=== PATIENT | male | born 1970 | race African-American/Black ===

== ENCOUNTER 2018-03-13 19:53 | Emergency (ER) | payer MEDICAID ==
[~2018-03-13] VITALS: Ht 182.9 cm; Wt 77.1 kg
--- NOTE | 2018-03-13 20:25 | Emergency Room Report ---
History of Present Illness General Chief Complaint: Behavioral Complaint Source: Patient, EMS (Eddie Ceballos) Present Illness HPI 47-year-old male patient presents to ER brought in by ambulance complaining of bilateral foot pain. Ambulance reports he "flagged" them down on the street while they were driving by. Reports history of schizophrenia. Reports does not take medication, doesn't want to be "effected" by meds. Denies suicidal or homicidal ideation. 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 Does not know reason for amputation, does not have surgical or location surgery. Complaining of foot pain. Patient is a poor historian. Denies fever, shortness of breath, abdominal pain Patient denies difficulty with walking. Denies cardiovascular past medical history, denies history of [place]. (Eddie Ceballos) Allergies: Coded Allergies: No Known Allergies (Unverified , 03/13/18) Patient History Past Medical History: see triage record Reviewed Nursing Documentation: PMH: Agreed; PSxH: Agreed (Eddie Ceballos) Nursing Documentation-PMH Past Medical History: No History, Except For History Of Psychiatric Problem: Yes (Eddie Ceballos) Review of Systems All Other Systems: negative except mentioned in HPI (Eddie Ceballos) Physical Exam Vital Signs Date Time Temp Pulse Resp B/P (MAP) Pulse Ox O2 Delivery O2 Flow Rate FiO2 03/13/18 19:57 97.6 88 18 124/81 97 Room Air 97.5 Sp02 EP Interpretation: reviewed, normal General Appearance: well appearing, no apparent distress, alert, GCS 15, non- toxic Head: normocephalic, atraumatic Neck: full range of motion Respiratory: lungs clear, normal breath sounds, no rhonchi, no respiratory distress, no accessory muscle use, no wheezing, speaking full sentences Cardiovascular #1: regular rate, rhythm, no edema Musculoskeletal: digits/nails normal, gait/station normal, normal range of motion, non-tender, other - no toes on right foot; 4 toes on left foot, missing big toe Neurologic: alert, oriented x3, responsive, motor strength/tone normal, sensory intact Psychiatric: no suicidal/homicidal ideation Skin: no rash, other - feet: no erythema, no edema, no signs of infection, no open wounds, no ulcer (Eddie Ceballos) Medical Decision Making PA Attestation Dr. Chery is my supervising Physician whom patient management has been discussed with. (Eddie Ceballos) Diagnostic Impression: Primary Impression: Behavioral disorder Additional Impressions: Chronic pain Qualified Codes: G89.29 - Other chronic pain s/p amputations ER Course Pt. presents to the ED c/o bilateral foot pain, hx of amputation. Multiple differentials considered. Vital signs: are WNL, pt. is afebrile Ordered labs, urine drug screen. ER COURSE: PE benign, patient feet no erythema, edema, signs of infection. Patient able to ambulate independently. Denies suicidal or homicidal ideation. Patient care transferred to Dr. Dotson. (Eddie Ceabllos) ER Course Please see above note. I fully evaluated and examined this patient. (There are only 3 toes on L foot,) Patient rested and eaten. He is conversant this morning. He states that the main thing he wants is a wheelchair because he has pain with ambulation. He states that a walker doesn't help him. He claims that he last saw his wheelchair before paramedics brought him here. Labs are unremarkable. The patient denies suicidal or homicidal ideation at this time. The patient states that the amputations were done at [facility] and that the last hospitalization 2 weeks ago was at [facility]. He states he has chronic pain in his feet. I told the patient that we are unable to obtain a wheelchair for him the best that I can do his crutches. He understood this. He was ambulating without difficulty without use of the crutches. The patient is stable for outpatient observation and treatment. I suggested he follow-up with his social insurance specialist. (Qasim Dotson M.D.) Last Vital Signs Date Time Temp Pulse Resp B/P (MAP) Pulse Ox O2 Delivery O2 Flow Rate FiO2 03/13/18 19:57 97.6 88 18 124/81 97 Room Air 97.5 (Eddie Ceballos) Last Vital Signs Date Time Temp Pulse Resp B/P (MAP) Pulse Ox O2 Delivery O2 Flow Rate FiO2 03/14/18 08:00 97.5 84 16 110/69 96 Room Air 97.5 Status: improved (Qasim Dotson M.D.) Disposition: HOME, SELF-CARE Condition: Improved Scripts Acetaminophen (Tylenol) 325 Mg Tablet 650 MG ORAL Q6H PRN for Prn Pain/Headache/Temp > 101, #20 TAB 0 Refills Prov: Qasim Dotson M.D. 03/14/18 Gabapentin* (GABAPENTIN*) 100 Mg Capsule 100 MG ORAL THREE TIMES A DAY, #60 CAP Prov: Qasim Dotson M.D. 03/14/18 Eddie Ceballos Mar 13, 2018 20:25 Qasim Dotson M.D. Mar 14, 2018 07:22
[2018-03-13 21:07] LABS: BASOPHILS % (AUTO) 1.8 % (0.0-2.0); EOSINOPHILS % (AUTO) 3.1 % (0.0-3.0); HEMATOCRIT 40.4 % (42.0-52.0); HEMOGLOBIN 12.7 G/DL (14.2-18.0); MEAN CORPUSCULAR VOLUME 80 FL (80-99); MONOCYTES % (AUTO) 12.5 % (1.0-10.0); NEUTROPHILS % (AUTO) 41.7 % (45.0-75.0); PLATELET COUNT 180 K/UL (150-450); RED BLOOD COUNT 5.08 M/UL (4.70-6.10); RED CELL DISTRIBUTION WIDTH 13.9 % (11.6-14.8); WHITE BLOOD COUNT 6.9 K/UL (4.8-10.8)
[2018-03-13 21:21] LABS: ALANINE AMINOTRANSFERASE 22 U/L (12-78); ALBUMIN 3.6 G/DL (3.4-5.0); ALBUMIN/GLOBULIN RATIO 0.8 (1.0-2.7); ALKALINE PHOSPHATASE 59 U/L (46-116); ANION GAP 9 mmol/L (5-15); ASPARTATE AMINO TRANSFERASE 16 U/L (15-37); BILIRUBIN,TOTAL 0.2 MG/DL (0.2-1.0); BLOOD UREA NITROGEN 10 mg/dL (7-18); CALCIUM 9.3 MG/DL (8.5-10.1); CARBON DIOXIDE 27 MMOL/L (21-32); CHLORIDE 107 MMOL/L (98-107); CREATININE 0.8 MG/DL (0.55-1.30); POTASSIUM 3.7 MMOL/L (3.5-5.1); SODIUM 143 MMOL/L (136-145)
[2018-03-14 00:19] VITALS: BP 91/46
[2018-03-14 05:14] VITALS: BP 106/66
[2018-03-14] MEDS ORDERED: TYLENOL325 MG ORAL (07:25)
[2018-03-14] MEDS ORDERED: GABAPENTIN100 MG ORAL (07:25)
[2018-03-14 08:00] VITALS: BP 110/69
[2018-03-14] MEDS ORDERED: PERMETHRIN60 GM TOPIC (23:08)
== END 2018-03-14 08:02 | disposition home or self-care (01) ==
LOC: EDBD 19:53 → EMR 20:30
DX: F91.9 Conduct disorder, unspecified (principal); G89.29 Other chronic pain; M79.672 Pain in left foot; M79.671 Pain in right foot; Z89.421 Acquired absence of other right toe(s); Z89.412 Acquired absence of left great toe
CPT/HCPCS: 36415; 80053; 80307; 85025; 99283

== ENCOUNTER 2018-03-14 22:19 | Emergency (ER) | payer MEDICAID ==
[~2018-03-14] VITALS: Ht 182.9 cm; Wt 81.6 kg
[~2018-03-14 22:19] MED LIST: GABAPENTIN100 MG ORAL; TYLENOL325 MG ORAL
[2018-03-14] MEDS ORDERED: PERMETHRIN60 GM TOPIC (23:08)
[2018-03-14 23:11] VITALS: BP 108/71
[2018-03-14 23:25] VITALS: BP 108/71
--- NOTE | 2018-03-15 00:04 | Emergency Room Report ---
History of Present Illness General Chief Complaint: General Complaint Source: Patient Present Illness HPI 47-year-old male presents ED for evaluation. Patient states he has scabies. Patient is a poor historian will not provide any additional history. States he is very itchy. Patient is homeless. Denies any pain. Denies any fevers or chills. No other aggravating relieving factors. No other associated symptoms Allergies: Coded Allergies: No Known Allergies (Unverified , 03/13/18) Patient History Past Medical History: none Past Surgical History: none Pertinent Family History: none Social History: Denies: smoking, alcohol use, drug use Immunizations: UTD Reviewed Nursing Documentation: PMH: Agreed; PSxH: Agreed Nursing Documentation-PMH Past Medical History: No Stated History Review of Systems All Other Systems: negative except mentioned in HPI Physical Exam Vital Signs Date Time Temp Pulse Resp B/P (MAP) Pulse Ox O2 Delivery O2 Flow Rate FiO2 03/14/18 22:45 97.5 83 16 108/71 100 Room Air 97.5 Sp02 EP Interpretation: reviewed, normal General Appearance: no apparent distress, alert, GCS 15, non-toxic Head: normocephalic, atraumatic Eyes: bilateral eye normal inspection, bilateral eye PERRL ENT: hearing grossly normal, normal pharynx, no angioedema, normal voice Neck: full range of motion, supple/symm/no masses Respiratory: chest non-tender, lungs clear, normal breath sounds, speaking full sentences Cardiovascular #1: regular rate, rhythm, no edema Cardiovascular #2: 2+ carotid (R), 2+ carotid (L), 2+ radial (R), 2+ radial (L) , 2+ dorsalis pedis (R), 2+ dorsalis pedis (L) Gastrointestinal: normal bowel sounds, non tender, soft, non-distended, no guarding, no rebound Rectal: deferred Genitourinary: normal inspection, no CVA tenderness Musculoskeletal: back normal, gait/station normal, normal range of motion, non- tender Neurologic: alert, oriented x3, responsive, motor strength/tone normal, sensory intact, speech normal Psychiatric: mood/affect normal, no suicidal/homicidal ideation Reflexes: 3+ bicep (R), 3+ bicep (L), 3+ tricep (R), 3+ tricep (L), 3+ knee (R) , 3+ knee (L) Skin: normal color, warm/dry, well hydrated, other - linear excoriations to arms, legs, chest Lymphatic: no adenopathy Medical Decision Making Diagnostic Impression: Primary Impression: Scabies ER Course Hospital Course 47-year-old male presents to ED with rash Differential diagnoses include: Cellulitis, dermatitis, insect bite, abscess Clinical course Patient placed on stretcher. After initial history, physical exam reveals a middle aged male in no acute distress. On exam there are multiple linear excoriations noted to the legs arms and chest. Consistent with scabies. Discussed findings with patient. I'll prescribe permethrin Diagnosis - scabies stable and discharged to home with prescription for elimite. Instructed to followup with PMD. Instructed return to ED if symptoms recur or worsen Last Vital Signs Date Time Temp Pulse Resp B/P (MAP) Pulse Ox O2 Delivery O2 Flow Rate FiO2 03/14/18 23:25 97.5 83 16 108/71 100 Room Air Status: improved Disposition: HOME, SELF-CARE Condition: Stable Scripts Permethrin* (ELIMITE*) 60 Gm Cream..g. 1 APPLIC TOPIC ONCE, #60 GM 0 Refills Apply cream from head to toe; leave on for 8-14 hours before washing off with water; may reapply in 1 week if live mites appear. Prov: Marito Green MD 03/14/18 Referrals: NOT CHOSEN IPA/,REFERRING (PCP) Patient Instructions: Contact Precautions, [id number] Marito Green MD Mar 15, 2018 00:04
== END 2018-03-14 23:25 | disposition home or self-care (01) ==
LOC: EMR 23:00
DX: B86 Scabies (principal)
CPT/HCPCS: 99283